=== PATIENT | female | born 1975 | race Caucasian/White ===

== ENCOUNTER 2022-02-01 10:43 | Day surgery (SDC) | payer BC ==
[2022-02-01] MEDS ORDERED: Xylocaine 1% Vial 30 ML PF IJ ONE (10:44)
[2022-02-01] MEDS ORDERED: Depo-Medrol 40 MG/ML IM ONE (10:44)
[2022-02-01] MEDS ORDERED: Lactated Ringers 1,000 ML IV ONE (13:09)
[2022-02-01] MEDS ORDERED: DIPRIVAN 200 MG/20 ML IV ONE (13:43)
--- NOTE | 2022-02-01 15:04 | XRAY ---
Indication: Bilateral L4-S1 MBB. Intraoperative fluoroscopy provided for 25 seconds. 2 digital spot images submitted for interpretation demonstrates posterior needle tips projecting over the expected left and right L4-S1 nerve roots. Correlate with intraoperative findings/report.
--- NOTE | 2022-02-01 15:18 | XRAY ---
25 seconds of fluoroscopy was used in surgery for a bilateral L4-S1 MBB.
== END 2022-02-01 14:10 | disposition home or self-care (01) ==
LOC: SDC-PAIN 10:43
PROVIDERS: ATTEND Psychiatry & Neurology Pain Medicine
DX: M47.816 Spondylosis without myelopathy or radiculopathy, lumbar region (principal); Z79.899 Other long term (current) drug therapy
CPT/HCPCS: 64493; 64494; 72020; 77002; J1030; J2001; J2704